=== PATIENT | female | born 1980 | race American Indian/Alaskan Native ===

== ENCOUNTER 2018-02-20 08:47 | Emergency (ER) | payer MEDICAID ==
--- NOTE | 2018-02-20 10:33 | Emergency Department Report ---
ED Seizure HPI - General Chief Complaint: Seizure Stated Complaint: SEIZURE Time Seen by Provider: 02/20/18 10:15 Source: patient, EMS Mode of arrival: Stretcher Limitations: No Limitations - History of Present Illness Initial Comments: Patient is a 37-year-old female that presents to emergency room with a seizure. Patient has a history of seizures and has not been taking all of her seizure medications as directed. Patient denies pain except for left shoulder pain which was secondary to a fall during the seizure. Patient states that she believes she fell and hit her left shoulder on the ground as a result of her seizure. Patient states the pain is a 4 out of 10. Patient states the pain is worse with movement and palpation. Patient states the pain is better with rest. Patient states she has not had her medications because she ran out of some of them. Patient denies chest pain and shortness of breath. Patient denies headache. Patient denies dizziness. Per patient's caregiver patient has missed some of the medications due to not having with her after she went from her previous detention to her detention. Patient has not been taking her all med but not sure of the exact names of the missing med. Patient has a history of cerebral palsy and MR per patient's caregiver Complaint: seizure -: Sudden Description of Episode: loss of consciousness, tonic-clonic movement -: second(s) Witnessed:: Yes Trauma: Yes (left shoulder from fall) Seizure History: known seizure disorder, history of non-compliance Place: home Possible Precipitating Event: none Associated Symptoms: denies other symptoms. denies: chest pain, confusion, cough, diaphoresis, fever/chills, loss of appetite, malaise, rash, shortness of breath, syncope, weakness, tongue injury, shoulder dislocation Treatments Prior to Arrival: none - Related Data Allergies Allergy/AdvReac Type Severity Reaction Status Date / Time No Known Allergies Allergy Unverified 02/20/18 10:33 ED Review of Systems ROS: Stated complaint: SEIZURE Other details as noted in HPI Comment: All other systems reviewed and negative Constitutional: denies: chills, fever Eyes: denies: eye pain, eye discharge, vision change ENT: denies: ear pain, throat pain Respiratory: denies: cough, shortness of breath, wheezing Cardiovascular: denies: chest pain, palpitations Endocrine: no symptoms reported Gastrointestinal: denies: abdominal pain, nausea, diarrhea Genitourinary: denies: urgency, dysuria, discharge Musculoskeletal: denies: back pain, joint swelling, arthralgia Skin: denies: rash, lesions Neurological: denies: headache, weakness, paresthesias Psychiatric: denies: anxiety, depression Hematological/Lymphatic: denies: easy bleeding, easy bruising ED Past Medical Hx - Past Medical History Previous Medical History?: Yes Hx Seizures: Yes Hx Asthma: Yes Additional medical history: Cerebral palsy and MR - Surgical History Past Surgical History?: No - Social History Smoking Status: Never Smoker Substance Use Type: None ED Physical Exam - General Limitations: No Limitations General appearance: alert, in no apparent distress, lethargic - Head Head exam: Present: atraumatic, normocephalic - Eye Eye exam: Present: normal appearance - ENT ENT exam: Present: mucous membranes moist - Neck Neck exam: Present: normal inspection - Respiratory Respiratory exam: Present: normal lung sounds bilaterally. Absent: respiratory distress - Cardiovascular Cardiovascular Exam: Present: regular rate, normal rhythm. Absent: systolic murmur, diastolic murmur, rubs, gallop - GI/Abdominal GI/Abdominal exam: Present: soft, normal bowel sounds - Extremities Exam Extremities exam: Present: normal inspection - Back Exam Back exam: Present: normal inspection - Neurological Exam Neurological exam: Present: alert, oriented X3 - Psychiatric Psychiatric exam: Present: normal affect, normal mood - Skin Skin exam: Present: warm, dry, intact, normal color. Absent: rash ED Course Vital Signs 02/20/18 02/20/18 02/20/18 09:05 09:28 09:30 Temperature 98.0 F Pulse Rate 85 Blood Pressure 128/86 123/92 O2 Sat by Pulse 98 97 97 Oximetry 02/20/18 09:45 Temperature Pulse Rate Blood Pressure 118/76 O2 Sat by Pulse Oximetry - Reevaluation(s) Reevaluation #1: Patient had a reaction to the Cerebyx. Patient began to itch. Cerebyx was stopped and Benadryl given. We'll give her her medications orally. Will have nurse contact the patient's pharmacy for exact doses. Patient is back to baseline and answering all questions appropriately 02/20/18 14:29 Reevaluation #2: Confirmed patient was on Keppra. We'll give Her loading dose and send home patient on her medications 02/20/18 17:39 Reevaluation #3: Tolerated by mouth intake. Patient completely back to baseline and caregiver at bedside. Patient has appointment already set for next week per caregiver. 02/20/18 17:40 ED Medical Decision Making - Lab Data Result diagrams: 02/20/18 10:47 02/20/18 10:47 - EKG Data -: EKG Interpreted by Me EKG shows normal: sinus rhythm, axis, intervals, QRS complexes, ST-T waves Rate: normal - EKG Data Interpretation: no acute changes, normal EKG - Radiology Data Radiology results: report reviewed - Medical Decision Making She has a 37-year-old female that presents emergency room with seizure activity secondary to noncompliance of medication. - Differential Diagnosis seizure activity. Noncompliance. Shoulder injury. Dehydration. Critical care attestation.: If time is entered above; I have spent that time in minutes in the direct care of this critically ill patient, excluding procedure time. ED Disposition Clinical Impression: Medical non-compliance, Seizure disorder, Seizure Disposition: DC-01 TO HOME OR SELFCARE Is pt being admited?: No Does the pt Need Aspirin: No Condition: Stable Instructions: Epilepsy (ED) Additional Instructions: Patient about primary care in 3-5 days. Patient to follow-up neurologist in 2- 3 days. Patient to continue all seizure medications. Patient to return here if condition worsens. Patient to increase water. Patient to rest. No driving. Referrals: PRIMARY CARE,MD [Primary Care Provider] - 3-5 Days Time of Disposition: 17:40
[2018-02-20 11:15] LABS: Basophils % (Auto) 0.2 % (0.0-1.8); Eosinophils % (Auto) 0.4 % (0.0-4.3); Hematocrit 43.5 % (30.3-42.9); Hemoglobin 14.6 gm/dl (10.1-14.3); Lymphocytes # (Auto) 2.2 K/mm3 (1.2-5.4); Mean Corpuscular HGB Conc 34 % (30-34); Mean Corpuscular Hemoglobin 31 pg (28-32); Mean Corpuscular Volume 93 fl (79-97); Monocytes # (Auto) 0.6 K/mm3 (0.0-0.8); Platelet Count 149 K/mm3 (140-440); Red Blood Count 4.67 M/mm3 (3.65-5.03); Red Cell Distribution Width 13.3 % (13.2-15.2)
[2018-02-20 11:34] LABS: Alanine Aminotransferase 14 units/L (7-56); Albumin 3.8 g/dL (3.9-5); BUN/Creatinine Ratio 22; Blood Urea Nitrogen 11 mg/dL (7-17); Calcium 9.4 mg/dL (8.4-10.2); Hemolysis Index 7
[2018-02-20 11:38] LABS: HCG Qualitative,Urine Negative (Negative)
[2018-02-20 11:42] LABS: Bilirubin,Urine NEG (Negative); Blood,Urine NEG (Negative); Color,Urine Yellow (Yellow); Protein,Urine <15 mg/dL mg/dL (Negative); Urobilinogen,Urine < 2.0 mg/dL (<2.0); WBC,Urine < 1.0 /HPF (0.0-6.0)
[2018-02-20 11:48] LABS: RBC,Urine < 1.0 /HPF (0.0-6.0)
[2018-02-20 11:54] LABS: Amphetamine Screen,Urine PRESUMPTIVE NEGATIVE; Benzodiazepines Screen,Urine PRESUMPTIVE NEGATIVE; Cannabinoid Screen,Urine PRESUMPTIVE NEGATIVE; Cocaine Screen,Urine PRESUMPTIVE NEGATIVE; Methadone Screen,Urine PRESUMPTIVE NEGATIVE; Opiate Screen,Urine PRESUMPTIVE NEGATIVE
--- NOTE | 2018-02-20 12:19 | Cat Scan Report ---
FINAL REPORT EXAM: CT HEAD/BRAIN WO CON HISTORY: Seizure TECHNIQUE: CT examination of the head without IV contrast PRIORS: None. FINDINGS: No acute air-fluid level visualized in the included air-filled sinuses. Bone windows demonstrate no acute fracture. The brain is without mass, mass effect, hemorrhage, or acute infarct. There is no extra-axial intracranial bleed, brain bleed, or midline shift. The ventricles and sulci are age-appropriate. IMPRESSION: No acute CVA, intracranial bleed, or brain mass
[2018-02-20] MEDS ORDERED: CEREBYX 1,000 MG.PE in NACL 0.9% 100 ML IV ONE (13:30)
[2018-02-20] MEDS ORDERED: BENADRYL ONE (14:08)
[2018-02-20] MEDS ORDERED: BENADRYL IV ONE (14:18)
--- NOTE | 2018-02-20 14:32 | XRay Report ---
LEFT SHOULDER RADIOGRAPHS INDICATION: Pain. COMPARISON: None similar. FINDINGS: Frontal and Y views of the left shoulder, 3 projections demonstrate normal humeral head contour, well positioned against the glenoid. Normal acromioclavicular joint. Preserved scapular contour. Normal visualized soft tissues, left ribs and lung. Motion artifact partly limits the Y view. CONCLUSION: No acute left shoulder radiographic abnormality, as described. Thank you for the opportunity to participate in this patient's care.
[2018-02-20] MEDS ORDERED: KEPPRA 1,000 MG/NS 0.75% 100ML 1,000 MG/100 ML BAG IV ONE (15:57)
[2018-02-20 18:17] VITALS: BP 103/70
[2018-02-20] MEDS ORDERED: PERCOCET 5/325 PO ONE (18:21)
[2018-02-20] MEDS ORDERED: PERCOCET 5/325 ONE (18:22)
== END 2018-02-20 18:05 | disposition home or self-care (01) ==
LOC: ED 08:47
DX: G40.909 Epilepsy, unspecified, not intractable, without status epilepticus (principal); Z91.14 Patient's other noncompliance with medication regimen; J45.909 Unspecified asthma, uncomplicated
CPT/HCPCS: 36415; 70450; 73030; 80053; 80164; 80177; 80307; 81001; 81025; 85025; 93005; 93010; 96374; 96375; 99285; G0480; J1200; J1953; Q2009; 80320

== ENCOUNTER 2018-03-13 18:14 | Emergency (ER) | payer MEDICAID ==
--- NOTE | 2018-03-13 18:45 | Emergency Department Report ---
ED General Adult HPI - General Chief complaint: Psych Stated complaint: MH EVAL Time Seen by Provider: 03/13/18 18:37 Source: patient, EMS (ems notes not available at time of chart dictation), RN notes reviewed Mode of arrival: Stretcher Limitations: No Limitations - History of Present Illness Initial comments: This is a 37-year-old female who is previously unknown to this provider who presented to the ER for evaluation of aggressive behavior. Patient reports that aching that her mother is a triggering factor for her aggressive behavior. The patient denies headache, neck pain, chest pain, abdominal pain, shortness of breath, urinary symptoms. Past medical history includes cerebral palsy, developmental delay, asthma, seizures. The patient is not having pain, and she denies homicidality, suicidality, hallucinations, access to guns, firearms. Her symptoms are intermittent, and worse when she thinks about her mother. They decreased with rest. -: Gradual Consistency: intermittent Improves with: other Worsens with: other Associated Symptoms: denies: confusion, chest pain, cough, diaphoresis, fever/ chills, headaches, loss of appetite, malaise, nausea/vomiting, rash, seizure, shortness of breath, syncope, weakness - Related Data Allergies Allergy/AdvReac Type Severity Reaction Status Date / Time No Known Allergies Allergy Unverified 02/20/18 10:33 ED Review of Systems ROS: Stated complaint: MH EVAL Other details as noted in HPI ED Past Medical Hx - Past Medical History Previous Medical History?: Yes Hx Seizures: Yes Hx Asthma: Yes Additional medical history: Cerebral palsy and MR - Social History Smoking Status: Never Smoker Substance Use Type: None ED Physical Exam - General Limitations: No Limitations General appearance: alert, in no apparent distress - Head Head exam: Present: atraumatic, normocephalic - Eye Eye exam: Present: normal appearance, EOMI. Absent: nystagmus - ENT ENT exam: Present: normal exam, normal orophraynx, mucous membranes moist, normal external ear exam - Neck Neck exam: Present: normal inspection, full ROM. Absent: tenderness, meningismus - Respiratory Respiratory exam: Present: normal lung sounds bilaterally. Absent: respiratory distress - Cardiovascular Cardiovascular Exam: Present: regular rate, normal rhythm, normal heart sounds. Absent: systolic murmur, diastolic murmur, rubs, gallop - GI/Abdominal GI/Abdominal exam: Present: soft, normal bowel sounds. Absent: distended, tenderness, guarding, rebound, rigid, pulsatile mass - Extremities Exam Extremities exam: Present: normal inspection, full ROM, normal capillary refill , other (there is no palpable cord. There is a negative Homans sign). Absent: pedal edema, joint swelling, calf tenderness - Back Exam Back exam: Present: normal inspection, full ROM. Absent: tenderness, CVA tenderness (R), paraspinal tenderness, vertebral tenderness - Neurological Exam Neurological exam: Present: alert, oriented X3, CN II-XII intact, normal gait, other (Extraocular movements intact. Tongue midline. No facial droop. Facial sensation intact to light touch in the V1, V2, V3 distribution bilaterally. 5 and 5 strength in 4 extremities.. Sensation is intact to light touch in 4 extremities.). Absent: motor sensory deficit - Psychiatric Psychiatric exam: Present: anxious. Absent: homicidal ideation, suicidal ideation - Skin Skin exam: Present: warm, dry, intact, normal color. Absent: rash ED Medical Decision Making - Lab Data Result diagrams: 03/13/18 18:55 Lab Results 03/13/18 03/13/18 03/13/18 Range/Units 18:55 18:55 18:55 Sodium 137 (137-145) mmol/L Potassium 4.3 (3.6-5.0) mmol/L Chloride 98.5 (98-107) mmol/L Carbon Dioxide 27 (22-30) mmol/L Anion Gap 16 mmol/L BUN 8 (7-17) mg/dL Creatinine 0.5 L (0.7-1.2) mg/dL Estimated GFR > 60 ml/min BUN/Creatinine Ratio 16 % Glucose 90 (65-100) mg/dL Calcium 8.6 (8.4-10.2) mg/dL Total Creatine Kinase 51 (30-135) units/L HCG, Quant < 2 (0-4) mIU/mL Salicylates < 0.3 L (2.8-20.0) mg/dL Acetaminophen (10.0-30.0) ug/mL Valproic Acid 96.1 (50-100) ug/mL 03/13/18 Range/Units 18:55 Sodium (137-145) mmol/L Potassium (3.6-5.0) mmol/L Chloride (98-107) mmol/L Carbon Dioxide (22-30) mmol/L Anion Gap mmol/L BUN (7-17) mg/dL Creatinine (0.7-1.2) mg/dL Estimated GFR ml/min BUN/Creatinine Ratio % Glucose (65-100) mg/dL Calcium (8.4-10.2) mg/dL Total Creatine Kinase (30-135) units/L HCG, Quant (0-4) mIU/mL Salicylates (2.8-20.0) mg/dL Acetaminophen < 5.0 L (10.0-30.0) ug/mL Valproic Acid (50-100) ug/mL - Medical Decision Making Differential diagnosis, including not limited to: Aggressive behavior, mood disorder, general medical evaluation Assessment and plan: 37-year-old female with resolved aggressive behavior. She is afebrile with reassuring vital signs, clinically sober, does not require 1013. Does not require CBC as it was sent a few weeks ago, and was unremarkable the patient does not endorse any complaints that would be suggestive of bleeding. She is clinically sober at this time, has a GCS of 15, with an NIH score of 0. Patient was seen in conjunction with the crisis/mental health team who also agree that patient did not require inpatient services. The patient can continue her current outpatient medications, and she can be discharged to follow up expectantly. Critical care attestation.: If time is entered above; I have spent that time in minutes in the direct care of this critically ill patient, excluding procedure time. ED Disposition Clinical Impression: Mood disorder Disposition: DC-01 TO HOME OR SELFCARE Is pt being admited?: No Does the pt Need Aspirin: No Condition: Good Instructions: Mood Disorders (ED) Additional Instructions: Continue current outpatient medications. Follow up with the primary care doctor , or psychiatrist or mental health professional within the next 2-3 weeks. Return to the ER right away with fevers, chills, lethargy, irritability, projectile vomiting, change in mental status, confusion, inability to tolerate liquid feeds. Referrals: PRIMARY CARE, [Primary Care Provider] - 3-5 Days ADE BOO MD [Staff Physician] - 3-5 Days [facility] [Outside] - 3-5 Days
[2018-03-13 19:28] LABS: BUN/Creatinine Ratio 16; Blood Urea Nitrogen 8 mg/dL (7-17); Calcium 8.6 mg/dL (8.4-10.2); Hemolysis Index 8
[2018-03-13 21:19] VITALS: BP 137/74
== END 2018-03-13 21:40 | disposition home or self-care (01) ==
LOC: ED 18:14
DX: F39 Unspecified mood [affective] disorder (principal); J45.909 Unspecified asthma, uncomplicated
CPT/HCPCS: 36415; 80048; 80164; 82550; 84702; 99283; G0480; 80320

== ENCOUNTER 2018-03-13 23:06 | Emergency (ER) | payer MEDICAID ==
[2018-03-14 00:18] LABS: Basophils % (Auto) 0.3 % (0.0-1.8); Eosinophils % (Auto) 0.2 % (0.0-4.3); Hematocrit 38.7 % (30.3-42.9); Lymphocytes # (Auto) 3.7 K/mm3 (1.2-5.4); Lymphocytes % (Auto) 42.5 % (13.4-35.0); Mean Corpuscular HGB Conc 34 % (30-34); Mean Corpuscular Hemoglobin 31 pg (28-32); Mean Corpuscular Volume 93 fl (79-97); Monocytes # (Auto) 1.1 K/mm3 (0.0-0.8); Monocytes % (Auto) 12.1 % (0.0-7.3); Platelet Count 110 K/mm3 (140-440); Red Blood Count 4.16 M/mm3 (3.65-5.03); Red Cell Distribution Width 13.4 % (13.2-15.2)
[2018-03-14 00:34] LABS: BUN/Creatinine Ratio 16; Blood Urea Nitrogen 8 mg/dL (7-17); Calcium 8.6 mg/dL (8.4-10.2); Hemolysis Index 8
[2018-03-14 05:55] LABS: Amphetamine Screen,Urine PRESUMPTIVE NEGATIVE; Benzodiazepines Screen,Urine PRESUMPTIVE NEGATIVE; Cannabinoid Screen,Urine PRESUMPTIVE NEGATIVE; Cocaine Screen,Urine PRESUMPTIVE NEGATIVE; Methadone Screen,Urine PRESUMPTIVE NEGATIVE; Opiate Screen,Urine PRESUMPTIVE NEGATIVE
[2018-03-14 06:07] LABS: Bilirubin,Urine NEG (Negative); Blood,Urine NEG (Negative); Color,Urine Yellow (Yellow); Mucus,Urine FEW /HPF; Protein,Urine <15 mg/dL mg/dL (Negative); Urobilinogen,Urine < 2.0 mg/dL (<2.0)
--- NOTE | 2018-03-14 07:29 | Emergency Department Report ---
HPI - General Chief Complaint: Psych Time Seen by Provider: 03/14/18 06:14 - HPI HPI: The patient is a 37 yo female presents for evaluation of mental health. The patient reports constant and severe depression for the past 2 days, associated with suicidal ideation. She admits to writing a suicide note at the nearby fire [place] last night, threatening to cut her throat. She shares that her symptoms were exacerbated secondary to an argument with her mother. The patient denies fever, headache, unexplained weight loss or weight gain, heat or cold intolerance, skin, hair, or nail changes, neuro deficits, homicidal ideations, or auditory or visual hallucinations. ED Past Medical Hx - Past Medical History Hx Seizures: Yes Hx Psychiatric Treatment: Yes (depression, bipolar schizophrenia, SI, HI) Hx Asthma: Yes Additional medical history: Cerebral palsy and MR - Surgical History Past Surgical History?: No - Social History Smoking Status: Never Smoker Substance Use Type: None ED Review of Systems ROS: Stated complaint: MH Other details as noted in HPI Constitutional: denies: fever ENT: denies: throat or neck pain Respiratory: denies: cough, shortness of breath Cardiovascular: denies: chest pain Endocrine: denies unexplained weight loss or gain Gastrointestinal: denies: abdominal pain, nausea Genitourinary: denies: dysuria Musculoskeletal: denies: leg swelling Skin: denies: rash Neurological: denies: headache Hematological/Lymphatic: denies: easy bleeding or easy bruising Psych: reports sadness or hopelessness Physical Exam - Physical Exam Vital Signs: Vital Signs 03/13/18 03/14/18 23:46 04:01 Temperature 97.5 F L Pulse Rate 92 H Respiratory 15 14 Rate Blood Pressure 102/65 O2 Sat by Pulse 99 Oximetry Physical Exam: General: well-nourished, well-developed, no acute distress Head: Normocephalic, atraumatic Eyes: normal sclera ENT: Mucous membranes are pale and dry Neck: trachea midline, neck supple, No neck stiffness, no cervical adenopathy Respiratory: Breath sounds equal bilaterally, no wheezing, rales, or rhonchi Cardio: S1 and S2 present, no murmurs, rubs, gallops, capillary refill is delayed Abdomen: Normoactive bowel sounds, soft abdomen, no tenderness Chest WALL/Back: No tenderness to palpation of the chest wall, no CVA tenderness with percussion Musc: No pitting edema Skin: No rash Neuro: no facial drooping, normal speech Psych: Flat affect, depressed mood, poor insight, positive suicidal ideation ED Course Vital Signs 03/13/18 03/14/18 23:46 04:01 Temperature 97.5 F L Pulse Rate 92 H Respiratory 15 14 Rate Blood Pressure 102/65 O2 Sat by Pulse 99 Oximetry ED Medical Decision Making - Lab Data Result diagrams: 03/14/18 00:00 03/14/18 00:00 - Medical Decision Making The patient was seen and examined by myself. The patient is placed on a front desk monitor and continuous pulse ox. On initial evaluation, the patient was found to be in no distress. Labs are obtained. Lab results are grossly unremarkable. The patient is medically clear. Mental health is consulted. Mental health evaluates the patient and agrees that the patient is at risk of harm to self. A 1013 is completed. The patient will be admitted to a psychiatric facility once bed placement is obtained. Critical care attestation.: If time is entered above; I have spent that time in minutes in the direct care of this critically ill patient, excluding procedure time. ED Disposition Clinical Impression: Suicidal ideation Depression Qualifiers: Depression Type: major depressive disorder Major depression recurrence: recurrent Active/Remission status: currently active Major depression episode severity: severe Psychotic features: without psychotic features Qualified Code(s ): F33.2 - Major depressive disorder, recurrent severe without psychotic features Disposition: DC/TX-65 PSY HOSP/PSY UNIT Is pt being admited?: No Does the pt Need Aspirin: No Condition: Stable Referrals: PRIMARY CARE [Primary Care Provider] - 3-5 Days Time of Disposition: 06:29
[2018-03-14] MEDS ORDERED: ALUM-MAG HYDROX-SIMETH 200-200-20MG/5ML PO PRN (07:30)
[2018-03-14] MEDS ORDERED: MILK OF MAGNESIA PO PRN (07:30)
--- NOTE | 2018-03-14 14:22 | Consultation ---
History of Present Illness - Reason for Consult Consult date: 03/14/18 Reason for consult: Initial Psychiatric Evaluation Medications and Allergies Allergies Allergy/AdvReac Type Severity Reaction Status Date / Time No Known Allergies Allergy Unverified 02/20/18 10:33 Active Meds: Active Medications Acetaminophen (Tylenol) 650 mg PO Q4HR PRN PRN Reason: Pain MILD(1-3)/Fever >100.5/PASCUAL Al Hydrox/Mg Hydrox/Simethicone (Alum-Mag Hydrox-Simeth 159-488-20hy/5ml) 30 ml PO Q4HR PRN PRN Reason: Indigestion Magnesium Hydroxide (Milk Of Magnesia) 30 ml PO Q12HR PRN PRN Reason: Constipation Mental Status Exam - Vital signs Last Vital Signs Temp 97.5 F L 03/13/18 23:46 Pulse 92 H 03/13/18 23:46 Resp 14 03/14/18 04:01 BP 102/65 03/13/18 23:46 Pulse Ox 99 03/13/18 23:46 Results Result Diagrams: 03/14/18 00:00 03/14/18 00:00 Abnormal lab results 03/14/18 03/14/18 03/14/18 Range/Units 00:00 00:00 00:00 Plt Count (140-440) K/mm3 Lymph % (Auto) (13.4-35.0) % [place] % (Auto) (0.0-7.3) % [place] # (0.0-0.8) K/mm3 Creatinine 0.5 L (0.7-1.2) mg/dL Salicylates < 0.3 L (2.8-20.0) mg/dL Acetaminophen < 5.0 L (10.0-30.0) ug/mL 03/14/18 Range/Units 00:00 Plt Count 110 L (140-440) K/mm3 Lymph % (Auto) 42.5 H (13.4-35.0) % [place] % (Auto) 12.1 H (0.0-7.3) % [place] # 1.1 H (0.0-0.8) K/mm3 Creatinine (0.7-1.2) mg/dL Salicylates (2.8-20.0) mg/dL Acetaminophen (10.0-30.0) ug/mL All other labs normal.
[2018-03-15] MEDS ORDERED: DIVALPROEX SODIUM 500 MG PO SCH (12:30)
[2018-03-15 13:12] LABS: Alanine Aminotransferase 21 units/L (7-56); Albumin 3.6 g/dL (3.9-5)
[2018-03-15 13:42] LABS: Bilirubin,Direct < 0.2 mg/dL (0-0.2)
[2018-03-15] MEDS: TRILEPTAL PO SCH ×2 (13:57→21:57)
[2018-03-15] MEDS ORDERED: TRILEPTAL ONE (21:35)
[2018-03-15] MEDS: TYLENOL PO PRN (21:57)
[2018-03-15] MEDS ORDERED: VIMPAT 100 MG PO SCH (22:00)
[2018-03-15] MEDS ORDERED: GEODON IM ONE (23:05)
[2018-03-16] MEDS: TYLENOL PO PRN (06:27)
[2018-03-16 09:08] LABS: Lipase 16 units/L (13-60)
[2018-03-16] MEDS: TRILEPTAL PO SCH ×2 (10:37→22:08)
[2018-03-16] MEDS: VIMPAT PO SCH ×3 (11:25→22:08)
--- NOTE | 2018-03-16 11:28 | XRay Report ---
LEFT WRIST, 3 views: HISTORY: Swelling, pain. Routine views demonstrate the carpal bones to be well mineralized with well preserved bony mineralization and interosseous joint spaces. The carpal and adjacent articular bones have normal contours. The surrounding soft tissues are unremarkable. IMPRESSION: Left wrist within normal limits.
--- NOTE | 2018-03-16 13:03 | Progress Note ---
Subjective - Reason for Consult Consult date: 03/16/18 Reason for consult: Psychiatry Follow-up - Chief Complaint Chief complaint: "I am good now" 37 yo female presents for evaluation of mental health. The patient reports constant and severe depression for the past 2 days associated SI's. Today the patient is calm, but vague during the assessment. She denies saying she wanted to cut her throat on admission. She avoids conversation about why she was brought to the ER. She denies SI/HI's and AVH's. She denies any side effects of her medications. Mental Status Exam - Vital signs Last Vital Signs Temp 97.9 F 03/16/18 09:56 Pulse 77 03/16/18 09:56 Resp 16 03/16/18 09:56 BP 129/82 03/16/18 09:56 Pulse Ox 100 03/16/18 09:56 - Exam Narrative exam: MSE: Appearance: calm, but vague Behavior: poor eye contact Speech: regular rate and tone Mood: "okay" guarded Affect: flat Thought Process: circumstantial Thought Content: denies SI/HI's and AVH's Motor Activity: lying in bed Cognition: A/O x 3 Insight: variable Judgment: variable Assessment and Plan Impression: Unspecified Mood DO. Today the patient is calm, but vague during the assessment. DDx: MDD, Bipolar DO Recommendation/Plan: Continue 1013 and gather collateral information to help determine proper dispo. Continue Depakote 500 mg PO BID for mood and Trileptal 300 mg PO BID for mood.
[2018-03-16] MEDS ORDERED: TRILEPTAL ONE (19:39)
[2018-03-17] MEDS: TRILEPTAL PO SCH ×2 (10:50→22:32)
[2018-03-17] MEDS: VIMPAT PO SCH ×2 (10:56→22:32)
--- NOTE | 2018-03-17 11:17 | Progress Note ---
Subjective - Reason for Consult Consult date: 03/17/18 Reason for consult: Psychiatry Follow-up - Chief Complaint Chief complaint: "I want to go home" 37 yo female presents for evaluation of mental health. The patient reports constant and severe depression for the past 2 days associated SI's. Today the patient is calm and cooperative, but disorganized during the assessment. She had to be redirected several times to keep her on topic. She did admit that she wanted to cut her throat during triage. She stated being upset when she made that statement. She was asked about other medications, She stated, "I take Zyprexa." She denies SI/HI's and AVH's. She denies any side effects of her medications. Mental Status Exam - Vital signs Last Vital Signs Temp 98.0 F 03/17/18 10:00 Pulse 98 H 03/17/18 10:00 Resp 18 03/17/18 10:00 BP 117/80 03/17/18 10:00 Pulse Ox 98 03/17/18 10:00 - Exam Narrative exam: MSE: Appearance: calm, cooperative Behavior: regular eye contact Speech: regular rate and tone Mood: "okay" Affect: flat Thought Process: disorganized Thought Content: denies SI/HI's and AVH's Motor Activity: lying in bed Cognition: A/O x 3 Insight: variable Judgment: variable Assessment and Plan Impression: Unspecified Mood DO. Today the patient is calm and cooperative, but disorganized during the assessment. DDx: MDD, Bipolar DO Recommendation/Plan: Continue 1013 with placement to inpatient psy services. Continue Depakote 500 mg PO BID for mood, Trileptal 300 mg PO BID for mood, and start Zyprexa 5 mg PO HS for mood. Discussed possible metabolic side effects of Zyprexa with patient. Ordered A1c and Lipid Panel.
[2018-03-17 14:45] LABS: Chol/HDL Ratio 2.39 %
[2018-03-18] MEDS ORDERED: GEODON IM ONE (09:53)
[2018-03-18] MEDS: TRILEPTAL PO SCH ×2 (10:38→21:57)
[2018-03-18] MEDS: TYLENOL PO PRN (10:39)
[2018-03-18] MEDS: VIMPAT PO SCH ×2 (10:53→22:43)
[2018-03-18] MEDS ORDERED: GEODON IM PRN (13:33)
--- NOTE | 2018-03-18 16:09 | Progress Note ---
Subjective - Reason for Consult Reason for consult: follow up - Chief Complaint Chief complaint: Subjectively: Patient remains fairly dysphoric and irritable. Very tearful on examination and perseverative. Mental status examination: overweight female limited eye contact somewhat guarded, dysphoric and tearful, anxious, constricted and mildly labile, loud, concrete mildly disorganized perseverative somatic focus and impoverished, denying auditory visual hallucinations but appears to be somewhat responding to internal stimuli, denies suicidal or homicidal thoughts but patient appears fairly evasive and with limited insight and judgment, ADLs limited Plan: Continue to refer for inpatient care Continue current dose of Zyprexa with plan to titrate tomorrow Mental Status Exam - Vital signs Last Vital Signs Temp 97.6 F 03/18/18 08:02 Pulse 84 03/18/18 08:02 Resp 16 03/18/18 08:02 BP 126/77 03/18/18 08:02 Pulse Ox 100 03/18/18 08:02
[2018-03-18] MEDS ORDERED: ATIVAN IM ONE (16:53)
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
[2018-03-19] MEDS: TRILEPTAL PO SCH ×2 (10:28→23:26)
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
[2018-03-19] MEDS: VIMPAT PO SCH ×2 (11:00→22:45)
[2018-03-19] MEDS ORDERED: BENADRYL ONE (13:52)
[2018-03-19] MEDS ORDERED: ATIVAN ONE ×2 (13:52→17:32)
[2018-03-19] MEDS ORDERED: HALDOL ONE ×2 (13:52→17:33)
[2018-03-19] MEDS ORDERED: ATIVAN IM ONE ×2 (14:33→17:33)
[2018-03-19] MEDS ORDERED: HALDOL IM ONE ×2 (14:37→17:33)
[2018-03-19] MEDS ORDERED: BENADRYL IM ONE (14:37)
[2018-03-20] MEDS: VIMPAT PO SCH ×2 (10:20→22:43)
[2018-03-20] MEDS: TRILEPTAL PO SCH ×2 (10:20→22:43)
--- NOTE | 2018-03-20 15:03 | Progress Note ---
Subjective - Reason for Consult Consult date: 03/20/18 Reason for consult: Psychiatry Follow-up - Chief Complaint Chief complaint: "I am tired" 37 yo female presents for evaluation of mental health. The patient reports constant and severe depression for the past 2 days associated SI's. Today the patient is calm during the assessment. She stated that she was tired. She was vague with most of her answers when questioned. She denies SI/HI's and AVH's. She denies any side effects of her medication. Mental Status Exam - Vital signs Last Vital Signs Temp 98 F 03/19/18 20:00 Pulse 77 03/19/18 20:00 Resp 18 03/19/18 21:39 BP 143/77 03/19/18 20:00 Pulse Ox 100 03/19/18 21:39 - Exam Narrative exam: MSE: Appearance: calm, cooperative Behavior: regular eye contact Speech: regular rate and tone Mood: "okay" Affect: flat Thought Process: circumstantial Thought Content: denies SI/HI's and AVH's Motor Activity: lying in bed Cognition: A/O x 3 Insight: variable Judgment: variable Assessment and Plan Impression: Unspecified Mood DO. Today the patient is calm and cooperative during the assessment. DDx: MDD, Bipolar DO Recommendation/Plan: Evaluate 1013 in 24 hours to determine proper dispo. Continue Depakote 500 mg PO BID for mood, Trileptal 300 mg PO BID for mood, and Zyprexa to 10 mg PO HS for mood. Discussed possible metabolic side effects of Zyprexa with patient.
[2018-03-20] MEDS: TYLENOL PO PRN (23:09)
[2018-03-21] MEDS: VIMPAT PO SCH ×2 (10:29→22:05)
[2018-03-21] MEDS: TRILEPTAL PO SCH ×2 (10:29→22:29)
--- NOTE | 2018-03-21 14:39 | Progress Note ---
Subjective - Reason for Consult Consult date: 03/21/18 Reason for consult: Psychaitric Follow-up Evaluation - Chief Complaint Chief complaint: "I am tired" 37 yo female presents for evaluation of mental health. The patient reports constant and severe depression for the past 2 days associated SI's. Today the patient is calm during the assessment. She stated that she was tired. She was vague with most of her answers when questioned. She denies SI/HI's and AVH's. She denies any side effects of her medication. Mental Status Exam - Vital signs Last Vital Signs Temp 97.4 F L 03/21/18 11:25 Pulse 105 H 03/21/18 11:25 Resp 16 03/21/18 11:25 BP 143/99 03/21/18 11:25 Pulse Ox 96 03/21/18 11:25 Assessment and Plan 1. Will not renew 1013. Patient 1013 expires 03-21-18. Due to possible side effects will continue to monitor for 24 hours. 2. Will monitor for an additional 24 hours to ensure no side effects to medication. 3. If no side effects are noted in 24 hours patient may return to senior living.
[2018-03-21] MEDS ORDERED: ATIVAN ONE (15:22)
[2018-03-21] MEDS ORDERED: NACL 0.9% 1000 ML 1,000 ML IV ONE (15:41)
[2018-03-21] MEDS ORDERED: BENADRYL IV ONE ×2 (15:41→19:18)
[2018-03-21] MEDS ORDERED: COGENTIN IM ONE (15:46)
[2018-03-21] MEDS ORDERED: ATIVAN IM ONE (15:46)
[2018-03-21] MEDS ORDERED: NACL 0.9% 1000 ML 1,000 ML ONE (15:48)
[2018-03-21] MEDS ORDERED: BENADRYL ONE (15:48)
--- NOTE | 2018-03-21 21:01 | Cat Scan Report ---
FINAL REPORT PROCEDURE: CT HEAD/BRAIN WO CON TECHNIQUE: Computerized tomography of the head was performed without contrast material. HISTORY: fall, headache COMPARISON: No prior studies are available for comparison. FINDINGS: Brain: Brain density appears normal. No evidence of intracranial hemorrhage. No parenchymal hemorrhage, mass lesions or mass effect are seen. No abnormal extraxial fluid collects or masses are seen. Ventricles: Ventricles are normal size and are midline. Bone Windows: No evidence of skull fracture. Paranasal sinuses: Visualized portions appear clear. Mastoid air cells: Clear IMPRESSION: Negative examination
[2018-03-21] MEDS ORDERED: COGENTIN PO SCH ×2 (22:00)
[2018-03-22] MEDS: TRILEPTAL PO SCH (10:44)
[2018-03-22] MEDS: VIMPAT PO SCH (10:44)
--- NOTE | 2018-03-22 19:08 | Emergency Department Report ---
HPI - General Chief Complaint: Psych Time Seen by Provider: 03/14/18 06:14 ED Past Medical Hx - Past Medical History Hx Seizures: Yes Hx Psychiatric Treatment: Yes (depression, bipolar schizophrenia, SI, HI) Hx Asthma: Yes Additional medical history: Cerebral palsy and MR - Surgical History Past Surgical History?: No - Social History Smoking Status: Never Smoker - Medications Home Medications: Home Medications Medication Instructions Recorded Confirmed Last Taken Type Divalproex Sodium 500 mg PO BID 03/14/18 03/14/18 Unknown History Vimpat 100 mg PO BID 03/14/18 03/14/18 Unknown History traZODone [Desyrel] 50 mg PO QHS 03/14/18 03/14/18 Unknown History Divalproex Sodium [Depakote] 500 mg PO BID #60 tablet. 03/22/18 Unknown Rx Lacosamide [Vimpat] 100 mg PO Q12HR #60 tablet 03/22/18 Unknown Rx OXcarbazepine [Trileptal] 300 mg PO BID #60 tablet 03/22/18 Unknown Rx ED Review of Systems ROS: Stated complaint: MH Other details as noted in HPI Physical Exam - Physical Exam Vital Signs: Vital Signs 03/13/18 03/14/18 03/14/18 23:46 04:01 16:38 Temperature 97.5 F L 98.5 F Pulse Rate 92 H 80 Respiratory 15 14 20 Rate Blood Pressure 102/65 Blood Pressure 151/91 [Left] O2 Sat by Pulse 99 98 Oximetry 03/14/18 03/14/18 03/15/18 17:00 21:14 03:05 Temperature 98 F Pulse Rate 88 Respiratory 18 18 Rate Blood Pressure Blood Pressure 132/77 [Left] O2 Sat by Pulse 98 Oximetry 03/15/18 03/15/18 03/16/18 10:00 20:46 09:56 Temperature 98.6 F 97.2 F L 97.9 F Pulse Rate 80 88 77 Respiratory 18 18 16 Rate Blood Pressure Blood Pressure 122/75 141/92 129/82 [Left] O2 Sat by Pulse 97 98 100 Oximetry 03/16/18 03/17/18 03/17/18 22:00 10:00 20:22 Temperature 98.8 F 98.0 F 98.3 F Pulse Rate 80 98 H 85 Respiratory 18 18 17 Rate Blood Pressure Blood Pressure 130/80 117/80 113/67 [Left] O2 Sat by Pulse 99 98 Oximetry 03/18/18 03/18/18 03/19/18 08:02 22:00 14:00 Temperature 97.6 F 98 F Pulse Rate 84 77 Respiratory 16 18 18 Rate Blood Pressure Blood Pressure 126/77 132/77 [Left] O2 Sat by Pulse 100 100 Oximetry 03/19/18 03/19/18 03/19/18 18:54 20:00 21:39 Temperature 98 F 98 F Pulse Rate 90 77 Respiratory 20 18 Rate Blood Pressure Blood Pressure 91/57 143/77 [Left] O2 Sat by Pulse 100 100 Oximetry 03/20/18 03/20/18 03/20/18 12:00 17:06 23:20 Temperature 97.7 F 97.7 F Pulse Rate 96 H 106 H Respiratory 18 18 16 Rate Blood Pressure Blood Pressure 102/55 119/69 [Left] O2 Sat by Pulse 97 98 98 Oximetry 03/21/18 03/21/18 03/21/18 11:25 14:00 18:00 Temperature 97.4 F L Pulse Rate 105 H 75 103 H Respiratory 16 18 18 Rate Blood Pressure Blood Pressure 143/99 94/56 105/54 [Left] O2 Sat by Pulse 96 98 98 Oximetry 03/21/18 03/22/18 03/22/18 20:35 14:32 14:35 Temperature 97.9 F Pulse Rate 98 H 85 Respiratory 100 H 16 Rate Blood Pressure Blood Pressure 107/74 128/89 [Left] O2 Sat by Pulse 98 100 Oximetry ED Course Vital Signs 03/13/18 03/14/18 03/14/18 23:46 04:01 16:38 Temperature 97.5 F L 98.5 F Pulse Rate 92 H 80 Respiratory 15 14 20 Rate Blood Pressure 102/65 Blood Pressure 151/91 [Left] O2 Sat by Pulse 99 98 Oximetry 03/14/18 03/14/18 03/15/18 17:00 21:14 03:05 Temperature 98 F Pulse Rate 88 Respiratory 18 18 Rate Blood Pressure Blood Pressure 132/77 [Left] O2 Sat by Pulse 98 Oximetry 03/15/18 03/15/18 03/16/18 10:00 20:46 09:56 Temperature 98.6 F 97.2 F L 97.9 F Pulse Rate 80 88 77 Respiratory 18 18 16 Rate Blood Pressure Blood Pressure 122/75 141/92 129/82 [Left] O2 Sat by Pulse 97 98 100 Oximetry 03/16/18 03/17/18 03/17/18 22:00 10:00 20:22 Temperature 98.8 F 98.0 F 98.3 F Pulse Rate 80 98 H 85 Respiratory 18 18 17 Rate Blood Pressure Blood Pressure 130/80 117/80 113/67 [Left] O2 Sat by Pulse 99 98 Oximetry 03/18/18 03/18/18 03/19/18 08:02 22:00 14:00 Temperature 97.6 F 98 F Pulse Rate 84 77 Respiratory 16 18 18 Rate Blood Pressure Blood Pressure 126/77 132/77 [Left] O2 Sat by Pulse 100 100 Oximetry 03/19/18 03/19/18 03/19/18 18:54 20:00 21:39 Temperature 98 F 98 F Pulse Rate 90 77 Respiratory 20 18 Rate Blood Pressure Blood Pressure 91/57 143/77 [Left] O2 Sat by Pulse 100 100 Oximetry 03/20/18 03/20/18 03/20/18 12:00 17:06 23:20 Temperature 97.7 F 97.7 F Pulse Rate 96 H 106 H Respiratory 18 18 16 Rate Blood Pressure Blood Pressure 102/55 119/69 [Left] O2 Sat by Pulse 97 98 98 Oximetry 03/21/18 03/21/18 03/21/18 11:25 14:00 18:00 Temperature 97.4 F L Pulse Rate 105 H 75 103 H Respiratory 16 18 18 Rate Blood Pressure Blood Pressure 143/99 94/56 105/54 [Left] O2 Sat by Pulse 96 98 98 Oximetry 03/21/18 03/22/18 03/22/18 20:35 14:32 14:35 Temperature 97.9 F Pulse Rate 98 H 85 Respiratory 100 H 16 Rate Blood Pressure Blood Pressure 107/74 128/89 [Left] O2 Sat by Pulse 98 100 Oximetry ED Medical Decision Making - Lab Data Result diagrams: 03/14/18 00:00 03/14/18 00:00 Critical care attestation.: If time is entered above; I have spent that time in minutes in the direct care of this critically ill patient, excluding procedure time. ED Disposition Clinical Impression: Mood disorder Depression Qualifiers: Depression Type: major depressive disorder Major depression recurrence: recurrent Active/Remission status: currently active Major depression episode severity: severe Psychotic features: without psychotic features Qualified Code(s ): F33.2 - Major depressive disorder, recurrent severe without psychotic features Disposition: PAT REG,NO TRIAGE Is pt being admited?: No Does the pt Need Aspirin: No Condition: Stable Instructions: Mood Disorders (ED), Depression (ED) Prescriptions: Divalproex Sodium [Depakote] 500 mg PO BID #60 tablet. Lacosamide [Vimpat] 100 mg PO Q12HR #60 tablet OXcarbazepine [Trileptal] 300 mg PO BID #60 tablet Referrals: PRIMARY CARE, [Primary Care Provider] - 3-5 Days Time of Disposition: 19:02
[2018-03-22 20:11] VITALS: BP 138/80
== END 2018-03-22 20:08 | disposition left against medical advice (07) ==
LOC: ED 23:06 → EEVIPCON 23:06 → ED 03-22 20:08
DX: F33.2 Major depressive disorder, recurrent severe without psychotic features (principal); R45.851 Suicidal ideations; J45.909 Unspecified asthma, uncomplicated; F31.9 Bipolar disorder, unspecified; F20.9 Schizophrenia, unspecified
CPT/HCPCS: 36415; 70450; 73110; 80048; 80061; 80074; 80164; 80307; 81001; 82150; 82550; 83036; 83690; 84702; 84703; 85025; 96372; 96374; 99283; 99285; G0480; J1200; J1630; J2060; J3486; J7030; 80320

== ENCOUNTER 2018-03-25 21:24 | Emergency (ER) | payer MEDICAID ==
[2018-03-25 22:26] VITALS: BP 106/38
[2018-03-26] MEDS ORDERED: NORCO 5/325 PO ONE (00:24)
--- NOTE | 2018-03-26 00:36 | Emergency Department Report ---
ED General Adult HPI - General Chief complaint: Laceration/Recheck/Suture Stated complaint: LAC TO LT FOREARM Time Seen by Provider: 03/26/18 00:22 Source: patient Mode of arrival: Ambulatory Limitations: No Limitations - History of Present Illness Initial comments: Patient is a 37-year-old female with a history of seizures who presents to ED today stating that while she was about taking a shower she fell sustained superficial scratch to her right arm. Patient states she takes Depakote for her seizures. Patient states her doctor is out of [place] she follows up regularly. Patient is complaining of left-sided neck pain and arm pain from the fall. She denies us of consciousness or hit in head - Related Data Home Medications Medication Instructions Recorded Confirmed Last Taken Divalproex Sodium 500 mg PO BID 03/14/18 03/14/18 Unknown Vimpat 100 mg PO BID 03/14/18 03/14/18 Unknown traZODone [Desyrel] 50 mg PO QHS 03/14/18 03/14/18 Unknown Previous Rx's Medication Instructions Recorded Last Taken Type Divalproex Sodium [Depakote] 500 mg PO BID #60 tablet. 03/22/18 Unknown Rx Lacosamide [Vimpat] 100 mg PO Q12HR #60 tablet 03/22/18 Unknown Rx OXcarbazepine [Trileptal] 300 mg PO BID #60 tablet 03/22/18 Unknown Rx Cephalexin [Keflex] 500 mg PO Q12HR #8 cap 03/26/18 Unknown Rx Ibuprofen [Motrin] 800 mg PO Q8HR PRN #30 tablet 03/26/18 Unknown Rx Allergies Allergy/AdvReac Type Severity Reaction Status Date / Time No Known Allergies Allergy Unverified 02/20/18 10:33 ED Review of Systems ROS: Stated complaint: LAC TO LT FOREARM Other details as noted in HPI Constitutional: denies: chills, fever Eyes: denies: eye pain, eye discharge, vision change ENT: denies: ear pain, throat pain Respiratory: denies: cough, shortness of breath, wheezing Cardiovascular: denies: chest pain, palpitations Endocrine: no symptoms reported Gastrointestinal: denies: abdominal pain, nausea, diarrhea Genitourinary: denies: urgency, dysuria, discharge Musculoskeletal: denies: back pain, joint swelling, arthralgia Skin: denies: rash, lesions Neurological: denies: headache, weakness, numbness, paresthesias, confusion Psychiatric: denies: anxiety, depression Hematological/Lymphatic: denies: easy bleeding, easy bruising ED Past Medical Hx - Past Medical History Previous Medical History?: Yes Hx Seizures: Yes Hx Psychiatric Treatment: Yes (depression, bipolar schizophrenia, SI, HI) Hx Asthma: Yes Additional medical history: Cerebral palsy and MR - Surgical History Past Surgical History?: No - Social History Smoking Status: Never Smoker Substance Use Type: None - Medications Home Medications: Home Medications Medication Instructions Recorded Confirmed Last Taken Type Divalproex Sodium 500 mg PO BID 03/14/18 03/14/18 Unknown History Vimpat 100 mg PO BID 03/14/18 03/14/18 Unknown History traZODone [Desyrel] 50 mg PO QHS 03/14/18 03/14/18 Unknown History Divalproex Sodium [Depakote] 500 mg PO BID #60 tablet. 03/22/18 Unknown Rx Lacosamide [Vimpat] 100 mg PO Q12HR #60 tablet 03/22/18 Unknown Rx OXcarbazepine [Trileptal] 300 mg PO BID #60 tablet 03/22/18 Unknown Rx Cephalexin [Keflex] 500 mg PO Q12HR #8 cap 03/26/18 Unknown Rx Ibuprofen [Motrin] 800 mg PO Q8HR PRN #30 tablet 03/26/18 Unknown Rx ED Physical Exam - General Limitations: No Limitations General appearance: alert, in no apparent distress - Head Head exam: Present: atraumatic - Eye Eye exam: Present: normal appearance, PERRL, EOMI - ENT ENT exam: Present: mucous membranes moist, TM's normal bilaterally - Neck Neck exam: Present: normal inspection, tenderness (left sided, no spinal tenderness), full ROM. Absent: lymphadenopathy, thyromegaly - Respiratory Respiratory exam: Present: normal lung sounds bilaterally. Absent: respiratory distress, wheezes, rales - Cardiovascular Cardiovascular Exam: Present: regular rate, normal rhythm. Absent: systolic murmur, diastolic murmur, rubs, gallop - GI/Abdominal GI/Abdominal exam: Present: soft, normal bowel sounds. Absent: distended, tenderness, guarding - Extremities Exam Extremities exam: Present: normal inspection - Back Exam Back exam: Present: normal inspection, full ROM. Absent: tenderness, CVA tenderness (R), CVA tenderness (L) - Neurological Exam Neurological exam: Present: alert, oriented X3, CN II-XII intact, normal gait - Psychiatric Psychiatric exam: Present: normal affect, normal mood - Skin Skin exam: Present: warm, dry, intact, normal color, other (superficial abrasion to left lower lateral arm). Absent: rash ED Course Vital Signs 03/25/18 21:25 Temperature 97.9 F Pulse Rate 93 H Respiratory 16 Rate Blood Pressure 106/38 O2 Sat by Pulse 98 Oximetry ED Medical Decision Making - Radiology Data Radiology results: report reviewed, image reviewed FINAL REPORT PROCEDURE: CT HEAD/BRAIN WO CON TECHNIQUE: Computerized tomography of the head was performed without contrast material. HISTORY: Seizure with fall. COMPARISON: CT scan of the brain dated 03/21/2018. FINDINGS: Skull and scalp: Normal. Paranasal sinuses: Normal. Ventricles and subarachnoid spaces: Normal. Cerebrum: No evidence of hemorrhage, acute infarction or mass . Cerebellum and brainstem: No evidence of hemorrhage, acute infarction or mass. Vasculature: Normal. Comments: None. IMPRESSION: No new CT evidence of acute intracranial pathology. Consider MRI of the brain for further characterization if there is continued clinical concern and if patient has no contraindication to MRI. Transcribed By: SUMMER Dictated By: JERI MORALES MD Electronically Authenticated By: JERI MORALES MD Signed Date/Time: 03/26/18 0152 - Medical Decision Making 37-year-old female presents with a superficial laceration to the left forearm status post fall in the bathroom. ED course: CT head and neck order to rule out head injury Patient received pain medication in the ED Abrasion was cleaned and triple antibiotic supplied. Redressed. Abrasion is about 4 cm very superficial and no need for stitches Discussed the patient is to follow-up with her primary [facility] physician. Patient had no seizure episodes in the ED. Pain controlled. She'll be sent home on pain medication and couple of days of antibiotics Critical care attestation.: If time is entered above; I have spent that time in minutes in the direct care of this critically ill patient, excluding procedure time. ED Disposition Clinical Impression: Abrasion forearm Qualifiers: Encounter type: initial encounter Laterality: left Qualified Code(s): S50.812A - Abrasion of left forearm, initial encounter Disposition: DC- TO HOME OR SELFCARE Is pt being admited?: No Does the pt Need Aspirin: No Condition: Stable Instructions: Acute Wound Care (ED), Abrasion (ED), Recurrent Seizures Adult ( ED) Additional Instructions: Make sure to follow up with the primary care physician as discussed. Take all your medications as you've been prescribed. If you have any worsening symptoms or develop new symptoms please return to ED immediately. Prescriptions: Cephalexin [Keflex] 500 mg PO Q12HR #8 cap Ibuprofen [Motrin] 800 mg PO Q8HR PRN #30 tablet PRN Reason: Pain Referrals: PRIMARY CARE, [Primary Care Provider] - 3-5 Days [facility] [Outside] - 3-5 Days [facility] [Outside] - 3-5 Days Forms: Accompanied Note, Work/School Release Form(ED) Time of Disposition: 02:58
--- NOTE | 2018-03-26 02:14 | Cat Scan Report ---
FINAL REPORT PROCEDURE: CT HEAD/BRAIN WO CON TECHNIQUE: Computerized tomography of the head was performed without contrast material. HISTORY: Seizure with fall. COMPARISON: CT scan of the brain dated 03/21/2018. FINDINGS: Skull and scalp: Normal. Paranasal sinuses: Normal. Ventricles and subarachnoid spaces: Normal. Cerebrum: No evidence of hemorrhage, acute infarction or mass . Cerebellum and brainstem: No evidence of hemorrhage, acute infarction or mass. Vasculature: Normal. Comments: None. IMPRESSION: No new CT evidence of acute intracranial pathology. Consider MRI of the brain for further characterization if there is continued clinical concern and if patient has no contraindication to MRI.
--- NOTE | 2018-03-26 02:50 | Cat Scan Report ---
FINAL REPORT PROCEDURE: CT CERVICAL SPINE WO CON TECHNIQUE: Computerized tomography of the cervical spine was performed from the skull base to T1 without contrast material. HISTORY: Neck pain. Seizure with fall. COMPARISON: No prior studies are available for comparison. FINDINGS: C1-2: No significant abnormality. C2-3: Slight disc bulge. C3-4: Slight disc osteophyte complex. Minimal posterior spurring. Possible slight left foraminal narrowing. C4-5: No significant abnormality. C5-6: Slight posterior and uncovertebral spurring. Slight left foraminal narrowing. C6-7: Slight posterior and uncovertebral osteophytes. C7-T1: No significant abnormality. Other: There is straightening of cervical lordosis. Small multilevel osteophytes. IMPRESSION: No CT evidence of displaced fracture. Straightening of cervical lordosis, consider patient positioning or muscle spasm. Mild degenerative change.
[2018-03-26] MEDS ORDERED: TRIPLE ANTIBIOTIC TP ONE (02:59)
== END 2018-03-26 03:11 | disposition home or self-care (01) ==
LOC: ED 21:24
DX: S50.812A Abrasion of left forearm, initial encounter (principal); W18.2XXA Fall in (into) shower or empty bathtub, initial encounter; Y93.89 Activity, other specified; Y92.89 Other specified places as the place of occurrence of the external cause; Y99.8 Other external cause status
CPT/HCPCS: 70450; 72125; 99283

== ENCOUNTER 2018-04-08 18:18 | Emergency (ER) | payer MEDICAID ==
--- NOTE | 2018-04-08 19:08 | Emergency Department Report ---
ED Seizure HPI - General Chief Complaint: Seizure Stated Complaint: PSYCH/SEIZURES Time Seen by Provider: 04/08/18 19:07 Source: EMS Mode of arrival: Ambulatory Limitations: Other - History of Present Illness Initial Comments: Patient says she had seizure earlier today. The seizure was unwitnessed. She says she doesn't think seizure medication is working. She also says she has been voices telling her how to kill herself. She says she's been thinking, dizziness suicide recently. She says she does not want to be around anymore and she wants to . Complaint: seizure -: Sudden, This afternoon Description of Episode: other (Unwithnessed seizure activity) Witnessed:: No Trauma: No Seizure History: known seizure disorder Place: home Possible Precipitating Event: none Associated Symptoms: denies other symptoms Treatments Prior to Arrival: none - Related Data Home Medications Medication Instructions Recorded Confirmed Last Taken Divalproex Sodium 500 mg PO BID 03/14/18 04/08/18 Unknown Vimpat 100 mg PO BID 03/14/18 04/08/18 Unknown traZODone [Desyrel] 50 mg PO QHS 03/14/18 04/08/18 Unknown Previous Rx's Medication Instructions Recorded Last Taken Type Divalproex Sodium [Depakote] 500 mg PO BID #60 tablet. 03/22/18 Unknown Rx Lacosamide [Vimpat] 100 mg PO Q12HR #60 tablet 03/22/18 Unknown Rx OXcarbazepine [Trileptal] 300 mg PO BID #60 tablet 03/22/18 Unknown Rx Cephalexin [Keflex] 500 mg PO Q12HR #8 cap 03/26/18 Unknown Rx Ibuprofen [Motrin] 800 mg PO Q8HR PRN #30 tablet 03/26/18 Unknown Rx Allergies Allergy/AdvReac Type Severity Reaction Status Date / Time No Known Allergies Allergy Unverified 02/20/18 10:33 ED Review of Systems ROS: Stated complaint: PSYCH/SEIZURES Other details as noted in HPI Comment: All other systems reviewed and negative Constitutional: denies: chills, fever Eyes: denies: vision change ENT: denies: ear pain, hearing loss Respiratory: denies: cough, shortness of breath Cardiovascular: denies: chest pain, palpitations, dyspnea on exertion, edema Endocrine: no symptoms reported Gastrointestinal: denies: abdominal pain, nausea, vomiting, diarrhea Genitourinary: denies: urgency, dysuria, frequency Musculoskeletal: denies: back pain, joint swelling Skin: denies: rash, lesions, change in color Neurological: denies: headache, weakness, numbness Psychiatric: denies: anxiety, depression Hematological/Lymphatic: denies: easy bleeding, easy bruising ED Past Medical Hx - Past Medical History Hx Seizures: Yes Hx Psychiatric Treatment: Yes (depression, bipolar schizophrenia, SI, HI) Hx Asthma: Yes Additional medical history: Cerebral palsy and MR - Social History Smoking Status: Never Smoker Substance Use Type: None - Medications Home Medications: Home Medications Medication Instructions Recorded Confirmed Last Taken Type Divalproex Sodium 500 mg PO BID 03/14/18 04/08/18 Unknown History Vimpat 100 mg PO BID 03/14/18 04/08/18 Unknown History traZODone [Desyrel] 50 mg PO QHS 03/14/18 04/08/18 Unknown History Divalproex Sodium [Depakote] 500 mg PO BID #60 tablet. 03/22/18 04/08/18 Unknown Rx Lacosamide [Vimpat] 100 mg PO Q12HR #60 tablet 03/22/18 04/08/18 Unknown Rx OXcarbazepine [Trileptal] 300 mg PO BID #60 tablet 03/22/18 04/08/18 Unknown Rx Cephalexin [Keflex] 500 mg PO Q12HR #8 cap 03/26/18 04/08/18 Unknown Rx Ibuprofen [Motrin] 800 mg PO Q8HR PRN #30 tablet 03/26/18 04/08/18 Unknown Rx ED Physical Exam - General Limitations: No Limitations, Other General appearance: alert, in no apparent distress - Head Head exam: Present: atraumatic, normocephalic, normal inspection - Eye Eye exam: Present: normal appearance, PERRL, EOMI Pupils: Present: normal accommodation - ENT ENT exam: Present: normal exam, normal orophraynx, mucous membranes moist - Neck Neck exam: Present: normal inspection, full ROM. Absent: tenderness - Respiratory Respiratory exam: Present: normal lung sounds bilaterally. Absent: respiratory distress, wheezes, rhonchi - Cardiovascular Cardiovascular Exam: Present: regular rate, normal rhythm, normal heart sounds - GI/Abdominal GI/Abdominal exam: Present: soft, normal bowel sounds. Absent: distended, tenderness, guarding, rebound - Extremities Exam Extremities exam: Present: normal inspection, full ROM, normal capillary refill - Back Exam Back exam: Present: normal inspection, full ROM. Absent: tenderness, CVA tenderness (R), CVA tenderness (L) - Neurological Exam Neurological exam: Present: alert, oriented X3, CN II-XII intact - Psychiatric Psychiatric exam: Present: anxious, suicidal ideation - Skin Skin exam: Present: warm, dry, intact, normal color ED Course Vital Signs 04/08/18 19:25 Temperature 98.5 F Pulse Rate 96 H Respiratory 18 Rate Blood Pressure 154/85 [Left] O2 Sat by Pulse 98 Oximetry - Reevaluation(s) Reevaluation #1: 04/09/18 00:17 Patient is medically cleared for psychiatric evaluation. ED Medical Decision Making - Lab Data Result diagrams: 04/08/18 19:22 04/08/18 19:22 - Radiology Data Radiology results: report reviewed - Medical Decision Making Suicide ideation. Seizure disorder. Critical care attestation.: If time is entered above; I have spent that time in minutes in the direct care of this critically ill patient, excluding procedure time. ED Disposition Clinical Impression: Suicidal ideation, Seizure disorder Disposition: DC/TX-65 PSY HOSP/PSY UNIT Is pt being admited?: No Does the pt Need Aspirin: No Condition: Stable Referrals: PRIMARY CARE, [Primary Care Provider] - 3-5 Days Time of Disposition: 00:18
[2018-04-08] MEDS ORDERED: ATIVAN IV ONE (19:11)
[2018-04-08 19:37] LABS: Basophils % (Auto) 0.2 % (0.0-1.8); Eosinophils % (Auto) 0.4 % (0.0-4.3); Hematocrit 37.5 % (30.3-42.9); Hemoglobin 12.9 gm/dl (10.1-14.3); Mean Corpuscular HGB Conc 35 % (30-34); Mean Corpuscular Hemoglobin 32 pg (28-32); Mean Corpuscular Volume 93 fl (79-97); Monocytes # (Auto) 0.8 K/mm3 (0.0-0.8); Monocytes % (Auto) 10.2 % (0.0-7.3); Platelet Count 157 K/mm3 (140-440); Red Blood Count 4.02 M/mm3 (3.65-5.03); Red Cell Distribution Width 13.3 % (13.2-15.2)
[2018-04-08 19:56] LABS: Alanine Aminotransferase 7 units/L (7-56); Albumin 3.8 g/dL (3.9-5); BUN/Creatinine Ratio 18; Blood Urea Nitrogen 9 mg/dL (7-17); Calcium 8.8 mg/dL (8.4-10.2); Hemolysis Index 8
[2018-04-08 20:00] LABS: Bilirubin,Urine NEG (Negative); Blood,Urine NEG (Negative); Color,Urine Yellow (Yellow); Mucus,Urine FEW /HPF; Protein,Urine <15 mg/dL mg/dL (Negative); WBC,Urine < 1.0 /HPF (0.0-6.0)
[2018-04-08] MEDS ORDERED: ATIVAN IM ONE (20:00)
[2018-04-08 20:03] LABS: HCG Qualitative,Urine Negative (Negative)
[2018-04-08 20:18] LABS: Amphetamine Screen,Urine PRESUMPTIVE NEGATIVE; Benzodiazepines Screen,Urine PRESUMPTIVE NEGATIVE; Cannabinoid Screen,Urine PRESUMPTIVE NEGATIVE; Cocaine Screen,Urine PRESUMPTIVE NEGATIVE; Methadone Screen,Urine PRESUMPTIVE NEGATIVE; Opiate Screen,Urine PRESUMPTIVE NEGATIVE
[2018-04-09] MEDS ORDERED: GEODON IM ONE (07:15)
[2018-04-09] MEDS ORDERED: GEODON IM PRN (07:18)
--- NOTE | 2018-04-09 14:12 | Consultation ---
History of Present Illness - Reason for Consult Consult date: 04/09/18 Reason for consult: Mental Health Evaluation Requesting physician: PATIENCE CHAPARRO - Chief Complaint Chief complaint: "The patient is drowsy" - History of Present Psychiatric Illness 37 y.o. AA female presenting to the ER for seizures and SI's. This patient is known to me. Today the patient is drowsy during the assessment. Per the MAR, the patient was given Geodon/Ativan for agitation prior to my arrival to her room. The patient was on a 1013 for 7 days in the ER 3 weeks ago before being discharged home. Per the record, the patient has a hx of seizures. Medications and Allergies Allergies Allergy/AdvReac Type Severity Reaction Status Date / Time No Known Allergies Allergy Unverified 02/20/18 10:33 Home Medications Medication Instructions Recorded Confirmed Last Taken Type Divalproex Sodium 500 mg PO BID 03/14/18 04/08/18 Unknown History Vimpat 100 mg PO BID 03/14/18 04/08/18 Unknown History traZODone [Desyrel] 50 mg PO QHS 03/14/18 04/08/18 Unknown History Divalproex Sodium [Depakote] 500 mg PO BID #60 tablet. 03/22/18 04/08/18 Unknown Rx Lacosamide [Vimpat] 100 mg PO Q12HR #60 tablet 03/22/18 04/08/18 Unknown Rx OXcarbazepine [Trileptal] 300 mg PO BID #60 tablet 03/22/18 04/08/18 Unknown Rx Cephalexin [Keflex] 500 mg PO Q12HR #8 cap 03/26/18 04/08/18 Unknown Rx Ibuprofen [Motrin] 800 mg PO Q8HR PRN #30 tablet 03/26/18 04/08/18 Unknown Rx Active Meds: Active Medications Ziprasidone (Geodon) 20 mg IM BID PRN PRN Reason: Agitation Stop: 04/13/18 07:17 Last Admin: 04/09/18 07:25 Dose: 20 mg Past psychiatric history - Past Medical History Past Medical History: other (Unable to obtain) Past Surgical History: Other (Unable to obtain) - past Psychiatric treatment and history Psych: Bipolar psychiatric treatment history: Multiple inpatient psy settings. The patient to drowsy to confirm or deny a fam psy hx. - Social History Social history: other (Unable to obtain) Mental Status Exam - Vital signs Last Vital Signs Temp 98.5 F 04/08/18 19:25 Pulse 96 H 04/08/18 19:25 Resp 18 04/08/18 19:25 BP 154/85 04/08/18 19:25 Pulse Ox 98 04/08/18 19:25 - Exam Narrative exam: Unable to complete the MSE because of the patient condition. Results Result Diagrams: 04/08/18 19:22 04/08/18 19:22 Abnormal lab results 04/08/18 04/08/18 04/08/18 Range/Units 19:22 19:22 19:22 MCHC 35 H (30-34) % Lymph % (Auto) 39.0 H (13.4-35.0) % [place] % (Auto) 10.2 H (0.0-7.3) % Creatinine 0.5 L (0.7-1.2) mg/dL Albumin 3.8 L (3.9-5) g/dL TSH 5.530 H (0.270-4.200) mlU/mL Salicylates (2.8-20.0) mg/dL Acetaminophen (10.0-30.0) ug/mL Valproic Acid (50-100) ug/mL 04/08/18 04/08/18 Range/Units 19:22 19:22 MCHC (30-34) % Lymph % (Auto) (13.4-35.0) % [place] % (Auto) (0.0-7.3) % Creatinine (0.7-1.2) mg/dL Albumin (3.9-5) g/dL TSH (0.270-4.200) mlU/mL Salicylates < 0.3 L (2.8-20.0) mg/dL Acetaminophen < 5.0 L (10.0-30.0) ug/mL Valproic Acid 104.4 H (50-100) ug/mL All other labs normal. Assessment and Plan Assessment and plan: Impression: Hx of Mood DO. The patient is drowsy during the assessment. VA 55.1. Recommendation/Plan: Continue 1013 and reassess patient in 24 hours. Start home medications Trileptal 300 mg PO BID for mood and Depakote 250 mg PO daily/500 mg PO HS for mood.
[2018-04-09] MEDS ORDERED: TRILEPTAL PO SCH (15:00)
[2018-04-09 15:38] LABS: Lipase 21 units/L (13-60)
[2018-04-09] MEDS ORDERED: ATIVAN ONE (16:14)
[2018-04-09] MEDS ORDERED: ATIVAN IM ONE (16:15)
--- NOTE | 2018-04-09 18:19 | Emergency Department Report ---
Blank Doc - Documentation Documentation: 37-year-old female was brought to my attention when she was having an apparent seizure. I witnessed the event. There was lip smacking and bizarre behavior. The patient had roving eye movements to both jean of vision. She did not have any tonic clonic movements. She did not lose consciousness. After a while she started speaking and actually talking about voices. The patient has a history of seizures. I think this event was likely consistent with a complex partial seizure. Physical exam HEENT sclerae clear atraumatic Neck supple no meningeal signs Chest clear to auscultation Cardiovascular S1-S2 regular rhythm and rate without murmur GI morbidly obese but nondistended and nontender Musculoskeletal no acute deformity or tenderness no significant edema Neurological exam consistent with complex partial seizure as above. Impression #1 complex partial seizures #2 psychiatric disorder Plan The patient was given 2 mg of Ativan IM. I do note that she has not been continued on her Vimpat or divalproex acid. These medicines will be reinitiated. I did do a arterial blood gas not long after the administration of Ativan. The patient was just slightly hypoxic and did have mild CO2 retention. I think this will likely improve with the metabolism of Ativan. I do think the patient will be difficult to place under the circumstances. However I will leave her pending acceptance. Her anticonvulsant dictations have been re-initiated.
[2018-04-09] MEDS ORDERED: TRILEPTAL ONE (18:27)
[2018-04-09] MEDS ORDERED: VIMPAT PO SCH ×2 (21:00→22:00)
[2018-04-10] MEDS: HALDOL IM PRN (05:46)
[2018-04-10] MEDS: VIMPAT PO SCH ×2 (10:21→22:00)
[2018-04-10] MEDS ORDERED: COGENTIN PO ONE (15:14)
[2018-04-10] MEDS ORDERED: ATIVAN IM ONE (15:18)
[2018-04-11] MEDS ORDERED: ATIVAN ONE ×2 (09:28→15:24)
[2018-04-11] MEDS ORDERED: ATIVAN IM ONE ×3 (09:56→15:41)
[2018-04-11] MEDS: VIMPAT PO SCH ×2 (10:07→23:08)
[2018-04-11] MEDS ORDERED: COGENTIN ONE (10:49)
[2018-04-11] MEDS: HALDOL IM PRN ×2 (10:50→23:56)
[2018-04-11] MEDS ORDERED: COGENTIN PO ONE (11:46)
[2018-04-11] MEDS ORDERED: BENADRYL ONE (15:24)
[2018-04-11] MEDS ORDERED: BENADRYL IM ONE (15:40)
[2018-04-11] MEDS ORDERED: HALDOL IM ONE (15:45)
--- NOTE | 2018-04-11 16:50 | Progress Note ---
Subjective - Reason for Consult Consult date: 04/11/18 Reason for consult: Psychiatric Follow-up Evaluation - Chief Complaint Chief complaint: "I feel better." Patient is a 37 year old female who presents to the emergency room for seizures and suicidal ideations. This patient is known to me. Today the patient reports " I'm ready to go home. My home provider took advantage of me. She had me on video and was talking about me on the phone." Currently , she denies SI/HI, A/VH, and delusions. Per assigned RN patient attempted to wrap call light around neck in the PM. As a result, patient was moved to a padded room. Patient has received multiple PRN's for agitation. Per assigned RN, patient's ACT team has found her placement. Paranoid thoughts are noted and reported. Mental Status Exam - Vital signs Last Vital Signs Temp 97.9 F 04/11/18 10:00 Pulse 102 H 04/11/18 10:00 Resp 20 04/11/18 16:02 BP 128/85 04/11/18 10:00 Pulse Ox 99 04/11/18 16:02 - Exam Narrative exam: Mental Status Exam: General Appearance: Casually dressed, hospital gown Attitude/Behavior: Cooperative Eye Contact: Intermittent Orientation: Alert and oriented x 3 (person, place, and time) Psychomotor & Musculoskeletal Activity: Standing in doorway Mood: "Better" Affect: Constricted Speech/Language: Normal rate and tone Thought process: Organized Thought Content: Paranoid Perception: Patient denies Concentration/Attention: Impaired Judgment: Variable Insight: Variable Suicidal Ideation/Plan: Patient denies Homicidal Ideation: Patient denies Assessment and Plan Assessment and plan: Impression: Hx of Mood DO. The patient is cooperative but anxious during the assessment. Mood labile. Patient denies SI/HI, A/VH, and delusions. Paranoid thoughts are noted and reported by staff. On 04/09/18 VPA level 55.1. DDx: Hx Mood Disorder Recommendation/Plan: 1. Continue 1013 and reassess patient in 24 hours. 2. Continue home medications Trileptal 300 mg PO BID for mood. 3. Increase Depakote 500 mg PO BID mood/agitation. Will order next Depakote level on 04/15/18 or sooner if necessary. 4. Will continue to monitor mood, psychosis, sleep, appetite, compliance, and side effects.
[2018-04-12] MEDS: VIMPAT PO SCH ×2 (11:45→22:30)
[2018-04-12] MEDS ORDERED: GEODON IM ONE ×2 (14:41→15:01)
[2018-04-13] MEDS: TRILEPTAL PO SCH ×2 (10:58→21:55)
[2018-04-13] MEDS: VIMPAT PO SCH ×2 (10:58→21:55)
--- NOTE | 2018-04-13 12:20 | Progress Note ---
Subjective - Reason for Consult Consult date: 04/13/18 Reason for consult: Psychiatry Follow-up - Chief Complaint Chief complaint: "Can I leave" Patient is a 37 year old female who presents to the emergency room or seizures and suicidal ideations. This patient is known to me. Today is calm and cooperative during the assessment. She denies wrapping a cord around her neck. She stated that she put a bed sheet around her neck. She is adamant that she was not trying to kill herself. She denies denies SI/HI's and AVH's. She stated that Vimpat maybe giving her tremors. The patient"s last PRN medication given for agitation was 11 April 2018. Per the patient her ACT Team has found her placement. Mental Status Exam - Vital signs Last Vital Signs Temp 98.3 F 04/13/18 08:10 Pulse 95 H 04/13/18 08:10 Resp 16 04/13/18 08:10 BP 112/60 04/13/18 08:10 Pulse Ox 100 04/13/18 08:10 - Exam Narrative exam: MSE: Appearance: calm, cooperative Behavior: regular eye contact Speech: regular rate and tone Mood: labile Affect: congruent to mood Thought Process: circumstantial Thought Content: denies SI/HI's and AVH's Motor Activity: lying in bed Cognition: A/O x 3 Insight: variable Judgment: variable Assessment and Plan Impression: Hx of Mood DO. The patient is calm and cooperative during the assessment. Mild tremors observed. Recommendation/Plan: Continue 1013 and reassess patient in 24 hours for proper dispo. Start Trileptal 300 mg PO BID for mood and continue Depakote 500 mg PO BID for mood. Contact her ACT Team to confirm placement. Informed the ER physician's of patient's tremors.
[2018-04-14] MEDS: TRILEPTAL PO SCH ×2 (11:49→23:10)
[2018-04-14] MEDS: VIMPAT PO SCH ×2 (11:50→23:10)
--- NOTE | 2018-04-14 13:11 | Progress Note ---
Subjective - Reason for Consult Consult date: 04/14/18 Reason for consult: Psychiatry Follow-up - Chief Complaint Chief complaint: "I have a place to stay" Patient is a 37 year old female who presents to the emergency room or seizures and suicidal ideations. This patient is known to me. Today is calm and cooperative during the assessment. She stated that her Ems Manager Tmi at [phone] has found her placement. She stated feeling better "mentally." She denies SI/HI's and AVH's. Mental Status Exam - Vital signs Last Vital Signs Temp 98.8 F 04/14/18 07:29 Pulse 88 04/14/18 07:29 Resp 20 04/14/18 07:29 BP 121/56 04/14/18 07:29 Pulse Ox 95 04/14/18 07:29 - Exam Narrative exam: MSE: Appearance: calm, cooperative Behavior: regular eye contact Speech: regular rate and tone Mood: "okay" Affect: congruent to mood Thought Process: circumstantial Thought Content: denies SI/HI's and AVH's Motor Activity: lying in bed Cognition: A/O x 3 Insight: fair Judgment: fair Assessment and Plan Impression: Hx of Mood DO. The patient is calm and cooperative during the assessment. Mild tremors observed. Recommendation/Plan: Evaluate 1013 in 24 hours to determine proper dispo. The patient's 1013 will tomorrow. Continue Trileptal 300 mg PO BID for mood and continue Depakote 500 mg PO BID for mood. Contact her ACT Team to confirm placement. A call was placed to Tim, the patient's Ems Manager to confirm placement, no answer, but left a message. Informed the ER physician's of patient's tremors. VA ordered for the AM.
[2018-04-14] MEDS: HALDOL IM PRN (21:41)
--- NOTE | 2018-04-15 09:12 | Event Note ---
Date: 04/15/18 The patient's ammonia level is elevated (93). Informed the patient's assigned nurse of this finding so the medical team can address. VA WNL.
[2018-04-15] MEDS: TRILEPTAL PO SCH ×2 (10:30→22:27)
[2018-04-15] MEDS: VIMPAT PO SCH ×2 (10:30→22:27)
[2018-04-15] MEDS: HALDOL IM PRN ×2 (11:50→18:48)
--- NOTE | 2018-04-15 14:05 | Progress Note ---
Subjective - Reason for Consult Consult date: 04/15/18 Reason for consult: Psychiatric Follow-up Evaluation - Chief Complaint Chief complaint: "A lot better" Patient is a 37 year old female who presents to the emergency room or seizures and suicidal ideations. This patient is known to me. Today is calm and cooperative during the assessment. Patient reports "I'm ready to go. " She verbalizes that her mood is much improved. She denies SI/HI/A /VH, and delusions. Mental Status Exam - Vital signs Last Vital Signs Temp 97.4 F L 04/15/18 10:31 Pulse 98 H 04/15/18 10:31 Resp 20 04/15/18 10:31 BP 133/79 04/15/18 10:31 Pulse Ox 97 04/15/18 10:31 - Exam Narrative exam: Mental Status Exam: General Appearance: Casually dressed, hospital gown Attitude/Behavior: Cooperative Eye Contact: Intermittent Orientation: Alert and oriented x 3 (person, place, and time) Psychomotor & Musculoskeletal Activity: Standing in doorway Mood: "Better" Affect: Constricted Speech/Language: Normal rate and tone Thought process: Organized Thought Content: Circumstantial, perseverations Perception: Patient denies. Denies A/V/T hallucinations Concentration/Attention: Impaired Judgment: Variable Insight: Variable Suicidal Ideation/Plan: Patient denies Homicidal Ideation: Patient denies Assessment and Plan Impression: Hx of Mood DO. The patient is calm and cooperative during the assessment. Tremors observed. Recommendation/Plan: 1. Psychiatry will not renew 1013. 1013 expires today. 2. Continue Trileptal 300 mg PO BID for mood. 3. Will discontinue Depakote 500 mg PO BID for mood. 4. Will start Cogentin 0.5mg po BID tremors/prevention of EPS and [place] 300mg po BID. 5. Patient educated on metabolic side effects. 6. S.W. consulted and will be assisting with placement.
[2018-04-16] MEDS ORDERED: COGENTIN PO SCH (10:00)
[2018-04-16] MEDS: ESKALITH PO SCH ×2 (10:36→22:18)
[2018-04-16] MEDS: VIMPAT PO SCH ×2 (10:36→22:19)
[2018-04-16] MEDS: TRILEPTAL PO SCH ×2 (11:49→22:18)
--- NOTE | 2018-04-16 13:02 | Progress Note ---
Subjective - Reason for Consult Consult date: 04/16/18 Reason for consult: Psychiatry Follow-up - Chief Complaint Chief complaint: "How are you" Patient is a 37 year old female who presents to the emergency room or seizures and suicidal ideations. This patient is known to me. Today is calm and cooperative during the assessment. She was informed that Case Mgmt is involved to help her with placement. She denies SI/HI's and AVH's. Mental Status Exam - Vital signs Last Vital Signs Temp 97.6 F 04/16/18 10:00 Pulse 101 H 04/16/18 10:00 Resp 18 04/16/18 10:00 BP 117/87 04/16/18 10:00 Pulse Ox 98 04/16/18 10:00 - Exam Narrative exam: MSE: Appearance: calm, cooperative Behavior: regular eye contact Speech: regular rate and tone Mood: "okay" Affect: congruent to mood Thought Process: circumstantial Thought Content: denies SI/HI's and AVH's Motor Activity: ambulatory, mild tremors Cognition: A/O x 3 Insight: fair Judgment: fair Assessment and Plan Impression: Hx of Mood DO. The patient is calm and cooperative during the assessment. Mild tremors observed. Recommendation/Plan: The patient's 1013 on 04/15/2018 and will not be extended. Continue Trileptal 300 mg PO BID for mood and [place] 300 mg BID for mood. The ER staff is aware of the patient's tremors and elevated ammonia level. Case Mgmt involved, the patient will need assistance with placement.
[2018-04-16] MEDS ORDERED: COGENTIN PO ONE (16:00)
[2018-04-16 16:38] LABS: Basophils % (Auto) 0.2 % (0.0-1.8); Eosinophils % (Auto) 0.4 % (0.0-4.3); Hematocrit 38.5 % (30.3-42.9); Lymphocytes % (Auto) 30.7 % (13.4-35.0); Mean Corpuscular HGB Conc 34 % (30-34); Mean Corpuscular Hemoglobin 31 pg (28-32); Mean Corpuscular Volume 93 fl (79-97); Monocytes # (Auto) 1.4 K/mm3 (0.0-0.8); Monocytes % (Auto) 14.5 % (0.0-7.3); Platelet Count 214 K/mm3 (140-440); Red Blood Count 4.15 M/mm3 (3.65-5.03); Red Cell Distribution Width 13.4 % (13.2-15.2)
[2018-04-16 16:48] LABS: INR 0.9 (0.87-1.13)
[2018-04-16 17:05] LABS: Alanine Aminotransferase 11 units/L (7-56); Albumin 3.9 g/dL (3.9-5); BUN/Creatinine Ratio 18; Blood Urea Nitrogen 11 mg/dL (7-17); Calcium 8.9 mg/dL (8.4-10.2); Hemolysis Index 2
--- NOTE | 2018-04-16 17:09 | XRay Report ---
FINAL REPORT PROCEDURE: Chest. TECHNIQUE: Portable AP view. HISTORY: Difficulty breathing. COMPARISON: No prior studies are available for comparison. FINDINGS: The heart and mediastinum appear normal. The lungs are clear and well expanded. There are no pleural effusions. The soft tissues and regional skeleton are unremarkable. IMPRESSION: Negative portable chest.
[2018-04-16 17:11] LABS: Bilirubin,Direct < 0.2 mg/dL (0-0.2)
[2018-04-16] MEDS ORDERED: TYLENOL PO ONE (20:12)
[2018-04-16] MEDS ORDERED: ATIVAN PO ONE (21:39)
[2018-04-16] MEDS ORDERED: VALIUM PO ONE (21:41)
[2018-04-17] MEDS ORDERED: NORCO 7.5/325 PO ONE (03:20)
[2018-04-17] MEDS ORDERED: NORCO 7.5/325 ONE (03:23)
[2018-04-17] MEDS ORDERED: TORADOL IM ONE (04:20)
[2018-04-17] MEDS ORDERED: TORADOL ONE (04:23)
[2018-04-17] MEDS ORDERED: GEODON IM ONE ×2 (10:42→10:51)
[2018-04-17] MEDS: ESKALITH PO SCH (10:49)
[2018-04-17] MEDS: VIMPAT PO SCH (10:50)
[2018-04-17] MEDS: TRILEPTAL PO SCH (10:50)
--- NOTE | 2018-04-17 11:14 | Progress Note ---
Subjective - Reason for Consult Consult date: 04/17/18 Reason for consult: Psychiatry Follow-up - Chief Complaint Chief complaint: "[place]" Patient is a 37 year old female who presents to the emergency room for seizures and suicidal ideations. This patient is known to me. There's no change to patient's presentation. She denies SI/HI's and AVH's. Mental Status Exam - Vital signs Last Vital Signs Temp 97.6 F 04/16/18 10:00 Pulse 101 H 04/16/18 10:00 Resp 18 04/17/18 05:03 BP 117/87 04/16/18 10:00 Pulse Ox 99 04/16/18 13:42 - Exam Narrative exam: MSE: Appearance: calm, cooperative Behavior: regular eye contact Speech: regular rate and tone Mood: "okay" Affect: congruent to mood Thought Process: circumstantial Thought Content: denies SI/HI's and AVH's Motor Activity: ambulatory, continuous tremors Cognition: A/O x 3 Insight: fair Judgment: fair Assessment and Plan Impression: Hx of Mood DO. The patient is calm and cooperative during the assessment. The patient continue yo have tremors. Recommendation/Plan: Continue Trileptal 300 mg PO BID for mood and [place] 300 mg BID for mood. Propanolol 10 mg PO once for tremors. Will reassess patient in 24 hours (tremors). The ER staff is aware of the patient's tremors and elevated ammonia level. Case Mgmt involved, the patient will need assistance with placement.
[2018-04-17 11:24] VITALS: BP 134/89
[2018-04-17] MEDS ORDERED: INDERAL PO ONE (11:30)
== END 2018-04-17 18:43 ==
LOC: ED 18:18 → EEVIPCON 18:18 → ED 04-17 18:43
DX: G40.909 Epilepsy, unspecified, not intractable, without status epilepticus (principal); F31.9 Bipolar disorder, unspecified; F20.9 Schizophrenia, unspecified; J45.909 Unspecified asthma, uncomplicated
CPT/HCPCS: 36415; 80048; 80053; 80074; 80164; 80178; 80307; 81001; 81025; 82140; 82150; 82803; 83690; 83735; 83880; 84443; 85025; 85610; 85730; 93005; 93010; 96372; 99285; G0480; J1200; J1630; J1885; J2060; J3486; 80320

== ENCOUNTER 2019-02-10 00:59 | Emergency (ER) | payer MEDICAID, OTHER ==
--- NOTE | 2019-02-10 02:52 | Emergency Department Report ---
ED Head Trauma HPI - General Chief complaint: Head Injury Stated complaint: HEAD TRAUMA Time Seen by Provider: 02/10/19 01:54 Source: EMS Mode of arrival: Stretcher Limitations: Other - History of Present Illness Initial comments: 38-year-old female with a past medical history of asthma, schizophrenia, bipolar disorder, seizures, and cerebral palsy presents to the hospital from [place] after striking her head on the wall several times. Patient at [place] on a 1013 for suicidal ideation and self harming behavior. She apparently struck her head on the wall approximately 3 times and punched her face several times. No LOC reported. She was sent to the ER for head CT to rule out injury. Prior to arrival she did receive IM Benadryl 50 mg, Haldol 5 mg, and Ativan 2 mg. She is currently sedated. - Related Data Home Medications Medication Instructions Recorded Confirmed Last Taken Divalproex Sodium 500 mg PO BID 03/14/18 04/08/18 Unknown Vimpat 100 mg PO BID 03/14/18 04/08/18 Unknown traZODone [Desyrel] 50 mg PO QHS 03/14/18 04/08/18 Unknown Previous Rx's Medication Instructions Recorded Last Taken Type Divalproex Sodium [Depakote] 500 mg PO BID #60 tablet. 03/22/18 Unknown Rx Lacosamide [Vimpat] 100 mg PO Q12HR #60 tablet 03/22/18 Unknown Rx OXcarbazepine [Trileptal] 300 mg PO BID #60 tablet 03/22/18 Unknown Rx Ibuprofen [Motrin] 800 mg PO Q8HR PRN #30 tablet 03/26/18 Unknown Rx cephALEXin [Keflex] 500 mg PO Q12HR #8 cap 03/26/18 Unknown Rx Lacosamide [Vimpat] 100 mg PO Q12HR #60 tablet 04/17/18 Unknown Rx Lawtell Carbonate 300 mg PO BID #60 tablet 04/17/18 Unknown Rx OXcarbazepine [Trileptal] 300 mg PO BID #60 tablet 04/17/18 Unknown Rx Allergies/Adverse reactions: Allergies Allergy/AdvReac Type Severity Reaction Status Date / Time No Known Allergies Allergy Unverified 02/20/18 10:33 ED Review of Systems ROS: Stated complaint: HEAD TRAUMA Other details as noted in HPI Comment: Unobtainable due to pts medical conditions ED Past Medical Hx - Past Medical History Previous Medical History?: Yes Hx Seizures: Yes Hx Psychiatric Treatment: Yes (depression, bipolar schizophrenia, SI, [place]) Hx Asthma: Yes Additional medical history: Cerebral palsy and MR - Surgical History Past Surgical History?: No - Social History Smoking Status: Unknown if ever smoked Substance Use Type: None - Medications Home Medications: Home Medications Medication Instructions Recorded Confirmed Last Taken Type Divalproex Sodium 500 mg PO BID 03/14/18 04/08/18 Unknown History Vimpat 100 mg PO BID 03/14/18 04/08/18 Unknown History traZODone [Desyrel] 50 mg PO QHS 03/14/18 04/08/18 Unknown History Divalproex Sodium [Depakote] 500 mg PO BID #60 tablet. 03/22/18 04/08/18 Unknown Rx Lacosamide [Vimpat] 100 mg PO Q12HR #60 tablet 03/22/18 04/08/18 Unknown Rx OXcarbazepine [Trileptal] 300 mg PO BID #60 tablet 03/22/18 04/08/18 Unknown Rx Ibuprofen [Motrin] 800 mg PO Q8HR PRN #30 tablet 03/26/18 04/08/18 Unknown Rx cephALEXin [Keflex] 500 mg PO Q12HR #8 cap 03/26/18 04/08/18 Unknown Rx Lacosamide [Vimpat] 100 mg PO Q12HR #60 tablet 04/17/18 Unknown Rx Lawtell Carbonate 300 mg PO BID #60 tablet 04/17/18 Unknown Rx OXcarbazepine [Trileptal] 300 mg PO BID #60 tablet 04/17/18 Unknown Rx ED Physical Exam - General Limitations: Other - Other Other exam information: General: No limitations, patient is alert in no acute distress Head exam: Atraumatic, normocephalic, superficial scratch/abrasion noted to left cheek Eyes exam: Normal appearance, pupils equal reactive to light, extraocular movements intact ENT: Moist mucous membrane, normal oropharynx Neck exam: Normal inspection, full range of motion, no meningismus nontender Respiratory exam: Clear to auscultation bilateral, no wheezes, rales, crackles Cardiovascular: Normal rate and rhythm Abdomen: Soft, nondistended, and nontender, with normal bowel sounds, no rebound, or guarding Extremity: Full range of motion normal inspection no deformity Back: Normal Inspection, full range of motion, no tenderness Neurologic: Drowsy but arousable, no focal deficit, sensation intact, moves all extremities equally Psychiatric: normal affect, normal mood Skin: Warm, dry, intact ED Course Vital Signs 02/10/19 02/10/19 01:17 01:45 Temperature 97.9 F Pulse Rate 83 Respiratory 18 18 Rate Blood Pressure 117/63 O2 Sat by Pulse 94 94 Oximetry - Lab Data Lab Results 02/10/19 Range/Units 04:07 HCG, Qual Negative (Negative) - Radiology Data Radiology results: report reviewed PROCEDURE: CT HEAD/BRAIN WO CON TECHNIQUE: Routine axial imaging was obtained of the brain without IV contrast. HISTORY: hit head on wall multiple times COMPARISONS: 03/26/2018 FINDINGS: There is no evidence of acute stroke or hemorrhage. There is chronic volume loss in the posterior fossa. The visualized sinuses are clear. There is generalized thickening of the calvarium. There is no evidence of skull fracture. IMPRESSION: No evidence of acute stroke or hemorrhage. Chronic volume loss in the posterior fossa. This may be related to chronic anticonvulsant therapy. Generalized thickening of the calvarium. No evidence of skull fracture.. - Medical Decision Making test negative. No acute injury identified on CT head. Patient's sedation likely secondary to medications received in route. Patient will be discharged back to [facility] hospital - Differential Diagnosis self harming behavior, concussion, ICH Critical Care Time: No Critical care attestation.: If time is entered above; I have spent that time in minutes in the direct care of this critically ill patient, excluding procedure time. ED Disposition Clinical Impression: Self-harming behavior, Schizophrenia, Mild closed head injury Disposition: [id number] PSY HOSP/PSY UNIT Is pt being admited?: No Does the pt Need Aspirin: No Condition: Stable Instructions: Minor Head Injury (ED), Schizophrenia (ED) Additional Instructions: Take Tylenol or Motrin as needed for pain. Follow up with your doctor or the clinic/doctor provided. Return if symptoms worsen as indicated by your discharge instructions Referrals: KIMBERLY MAYO MD [Primary Care Provider] - 7-10 days [facility] [Provider Group] - 7-10 days Time of Disposition: 05:47
--- NOTE | 2019-02-10 05:27 | Cat Scan Report ---
PROCEDURE: CT HEAD/BRAIN WO CON TECHNIQUE: Routine axial imaging was obtained of the brain without IV contrast. HISTORY: hit head on wall multiple times COMPARISONS: 03/26/2018 FINDINGS: There is no evidence of acute stroke or hemorrhage. There is chronic volume loss in the posterior fos sa. The visualized sinuses are clear. There is generalized thickening of the calvarium. There is no e vidence of skull fracture. IMPRESSION: No evidence of acute stroke or hemorrhage. Chronic volume loss in the posterior fossa. This may be related to chronic anticonvulsant therapy. Generalized thickening of the calvarium. No evidence of skull fracture.. This document is electronically signed by Michael Kendall MD., February 10 2019 05:25:03 AM ET
[2019-02-10 06:05] VITALS: BP 105/63
== END 2019-02-10 06:58 ==
LOC: ED 00:59
DX: S09.90XA Unspecified injury of head, initial encounter (principal); F20.9 Schizophrenia, unspecified; R45.851 Suicidal ideations; F31.9 Bipolar disorder, unspecified; J45.909 Unspecified asthma, uncomplicated; W22.01XA Walked into wall, initial encounter; Y93.89 Activity, other specified; Y92.89 Other specified places as the place of occurrence of the external cause; Y99.8 Other external cause status
CPT/HCPCS: 36415; 70450; 84703